=== PATIENT | female | born 1965 | race Caucasian/White ===

== ENCOUNTER 2016-12-12 23:49 | Emergency (ER) | payer BC, OTHER ==
[~2016-12-12] VITALS: Ht 154.9 cm; Wt 73.7 kg
[2016-12-12 23:55] VITALS: TEMP 36.6; Ht 154.9 cm; Wt 73.7 kg
[2016-12-13] MEDS ORDERED: PROPARACAINE HCL 0.5% OP SOLN 15 ML BTL OP STA (00:21)
--- NOTE | 2016-12-13 00:36 | EMERGENCY ROOM VISIT NOTE ---
History Report prepared by Scribe: Carlos Flores Under the Supervision of: Dr. Lisandro Sahni D.O. First contact with patient: 00:15 Chief Complaint: EYE PAIN Stated Complaint: EYE PAIN History of Present Illness The patient is a 51 year old female who presents to the Emergency Room with complaints of persistent right eye pain starting earlier in the day. The patient woke up with right eye blurriness that progressed to pain later in the day. The pain is described as a burning sensation rated 8/10 in severity. Her left eye is normal. The patient has a history of Thygeson's disease. She has been treated with steroid eye drops in the past. Her symptoms are consistent with past Thygeson's flare ups. She has not had a major flare up in almost two years. She denies any other history of eye disease, including corneal abrasion. She wears contacts. Source of History: patient Onset: earlier in the day Position: eye (right) Symptom Intensity: 8/10 Quality: burning Timing: other (persistent) Review of Systems See HPI for pertinent positives and negatives. A total of ten systems were reviewed and were otherwise negative. Past Medical & Surgical Medical Problems: (1) Thygeson's disease Family History No pertinent family history Social History Smoking Status: Former Smoker Marital Status: Current/Historical Medications Scheduled Nortriptyline (Pamelor), 10 MG PO QPM Allergies Coded Allergies: Levofloxacin (Verified Allergy, Intermediate, n/v, 12/12/16) Uncoded Allergies: BACTRIM DS (Allergy, Mild, Hives, 12/12/16) Physical Exam Vital Signs Date Time Temp Pulse Resp B/P Pulse Ox O2 Delivery O2 Flow Rate FiO2 12/12/16 23:55 36.6 90 18 161/91 98 Room Air Right Eye Acuity: 20/70 Left Eye Acuity: 20/25 Physical Exam GENERAL: Awake, alert, well-appearing, in no distress HENT: Normocephalic, atraumatic. Oropharynx unremarkable. EYES: Pupils are equal round and reactive to light. Extraocular muscles intact. Injected conjunctiva bilaterally. Mild chemosis right eye. NECK: Supple. No nuchal rigidity. FROM. No JVD. RESPIRATORY: Clear to auscultation. CARDIAC: Regular rate, normal rhythm. Extremities warm and well perfused. Pulses equal. ABDOMEN: Soft, non-distended. No tenderness to palpation. No rebound or guarding. No masses. RECTAL: Deferred. MUSCULOSKELETAL: Chest examination reveals no tenderness. The back is symmetrical on inspection without obvious abnormality. There is no CVA tenderness to palpation. No joint edema. LOWER EXTREMITIES: Calves are equal size bilaterally and non-tender. No edema. No discoloration. NEURO: Normal sensorium. No sensory or motor deficits noted. SKIN: No rash or jaundice noted. Medical Decision & Procedures Procedure Indication: Right eye pain. The right eye was prepped with topical proparacaine. Pain was relieved. There was no uptake of dye. Pupil was not cloudy. ED Course 0015: The patient was evaluated in room A10. A complete history and physical exam was performed. 0021: Proparacaine HCl 2 drops OP. 0044: Nilwood 5/325 mg PO, Nilwood 5/325 mg PO Homepack. 0050: Discussed discharge instructions with her. She verbalized understanding and agreement. The patient is ready for discharge. Medical Decision Differential diagnosis includes corneal abrasion, corneal ulcer, conjunctivitis , scleritis, keratitis. There is no evidence of corneal abrasion or corneal ulcer on the floor seen evaluation. The pain was relieved with proparacaine. Patient states that this is a similar episode of her keratitis and has used steroids in the past. I will prescribe her steroids with follow-up with her supply aide. Impression Primary Impression: Thygeson's disease Scribe Attestation The scribe's documentation has been prepared under my direction and personally reviewed by me in its entirety. I confirm that the note above accurately reflects all work, treatment, procedures, and medical decision making performed by me. Departure Information Dispostion Home / Self-Care Referrals No Doctor, Assigned (PCP) Juan Jose Long D.O. Forms HOME CARE DOCUMENTATION FORM, IMPORTANT VISIT INFORMATION, WORK / SCHOOL INSTRUCTIONS Patient Instructions ED Keratitis UV, [facility] Additional Instructions Use steroid drops. Follow-up with ophthalmology return for worsening symptoms Problem Qualifiers Primary Impression: Thygeson's disease Laterality: right Qualified Codes: H16.141 - Punctate keratitis, right eye
[2016-12-13] MEDS ORDERED: HYDROCODONE/ACETAMOPHEN 5/325MG TAB PO STA (00:44)
[2016-12-13] MEDS ORDERED: NORCO 5/325MG HOME PACK PO ONE (00:45)
[2016-12-13] MEDS ORDERED: NORT10CA2 PO (00:50)
[2016-12-13 01:11] VITALS: BP 161/91; PULSE 90; O2SAT 98
== END 2016-12-13 01:13 | disposition home or self-care (01) ==
LOC: C.EDB 23:50 → C.EDA 12-13 01:13
DX: H16.141 Punctate keratitis, right eye (principal); Z87.891 Personal history of nicotine dependence